=== PATIENT | female | born 1960 | race Caucasian/White ===

== ENCOUNTER 2023-08-20 14:52 | Outpatient (REF) | payer OTHER, SELFPAY ==
[2023-08-20 15:29] LABS: MANUAL DIFF FLAG NO
[2023-08-20 15:32] LABS: Basophils Absolute Auto 0.1 X10*3/uL (0.0-0.2); Basophils Percent Auto 0.9 % (0-2); Eosinophils Absolute Auto 0.2 X10*3/uL (0.0-0.4); Eosinophils Percent Auto 1.9 % (0-4); Hemoglobin 14.3 g/dl (12.0-16.0); Imm Gran Abs Auto 0.03 X10*3/uL (0.00-0.03); Imm Gran Pct Auto 0.3 % (0.0-0.4); Lymphocytes Absolute Auto 2.5 X10*3/uL (1.2-4.9); Lymphocytes Percent Auto 28.3 % (20-40); Mean Corpuscular HGB Conc 34.9 g/dl (31.0-35.0); Mean Corpuscular Hemoglobin 32.9 pg (27.0-33.0); Mean Corpuscular Volume 94.3 fL (80.0-98.0); Mean Platelet Volume 8.9 fL (9.4-12.3); Monocytes Absolute Auto 0.6 X10*3/uL (0.1-1.2); Monocytes Percent Auto 6.2 % (2-11); Neutrophils Absolute Auto 5.5 x10*3/uL (2.0-8.3); Neutrophils Percent Auto 62.4 % (45-73); Platelet Count 192 X10*3/uL (160-400); Red Blood Count 4.35 X10*6/uL (4.20-5.50); Red Cell Distribution Width 12.9 % (11.0-16.0); White Blood Count 8.9 X10*3/uL (4.8-10.8)
[2023-08-20 16:43] LABS: Ferritin 518 ng/mL (10-250)
== END 2023-08-20 14:53 | disposition home or self-care (01) ==
LOC: HO.BBR 14:52
PROVIDERS: PCP Registered Nurse; Visit Provider Family Medicine
DX: E83.110 Hereditary hemochromatosis (principal)
CPT/HCPCS: 36415; 82728; 85025

== ENCOUNTER 2023-08-27 14:49 | Outpatient (REF) | payer OTHER, SELFPAY ==
[2023-08-27 15:16] LABS: MANUAL DIFF FLAG NO
[2023-08-27 15:17] LABS: Basophils Absolute Auto 0.1 X10*3/uL (0.0-0.2); Basophils Percent Auto 0.8 % (0-2); Eosinophils Absolute Auto 0.2 X10*3/uL (0.0-0.4); Hematocrit 37.7 % (37.0-47.0); Hemoglobin 13.1 g/dl (12.0-16.0); Imm Gran Abs Auto 0.03 X10*3/uL (0.00-0.03); Imm Gran Pct Auto 0.3 % (0.0-0.4); Lymphocytes Absolute Auto 2.9 X10*3/uL (1.2-4.9); Lymphocytes Percent Auto 28.4 % (20-40); Mean Corpuscular HGB Conc 34.7 g/dl (31.0-35.0); Mean Corpuscular Hemoglobin 33.4 pg (27.0-33.0); Mean Corpuscular Volume 96.2 fL (80.0-98.0); Mean Platelet Volume 8.5 fL (9.4-12.3); Monocytes Absolute Auto 0.7 X10*3/uL (0.1-1.2); Monocytes Percent Auto 6.6 % (2-11); Neutrophils Absolute Auto 6.2 x10*3/uL (2.0-8.3); Neutrophils Percent Auto 61.9 % (45-73); Platelet Count 219 X10*3/uL (160-400); Red Blood Count 3.92 X10*6/uL (4.20-5.50); Red Cell Distribution Width 13.2 % (11.0-16.0); White Blood Count 10.1 X10*3/uL (4.8-10.8)
[2023-08-27 16:51] LABS: Ferritin 337 ng/mL (10-250)
== END 2023-08-27 14:50 | disposition home or self-care (01) ==
LOC: HO.BBR 14:49
PROVIDERS: PCP Registered Nurse; Visit Provider Family Medicine
DX: E83.110 Hereditary hemochromatosis (principal)
CPT/HCPCS: 36415; 82728; 85025

== ENCOUNTER 2023-09-10 14:58 | Outpatient (REF) | payer OTHER, SELFPAY ==
[2023-09-10 15:20] LABS: MANUAL DIFF FLAG NO
[2023-09-10 15:21] LABS: Basophils Absolute Auto 0.1 X10*3/uL (0.0-0.2); Eosinophils Absolute Auto 0.1 X10*3/uL (0.0-0.4); Eosinophils Percent Auto 1.4 % (0-4); Hemoglobin 13.1 g/dl (12.0-16.0); Imm Gran Abs Auto 0.05 X10*3/uL (0.00-0.03); Imm Gran Pct Auto 0.5 % (0.0-0.4); Lymphocytes Absolute Auto 2.3 X10*3/uL (1.2-4.9); Lymphocytes Percent Auto 25.3 % (20-40); Mean Corpuscular HGB Conc 34.5 g/dl (31.0-35.0); Mean Corpuscular Hemoglobin 33.6 pg (27.0-33.0); Mean Corpuscular Volume 97.4 fL (80.0-98.0); Mean Platelet Volume 8.5 fL (9.4-12.3); Monocytes Absolute Auto 0.6 X10*3/uL (0.1-1.2); Monocytes Percent Auto 6.8 % (2-11); Platelet Count 205 X10*3/uL (160-400); Red Cell Distribution Width 13.7 % (11.0-16.0); White Blood Count 9.2 X10*3/uL (4.8-10.8)
[2023-09-10 16:19] LABS: Ferritin 251 ng/mL (10-250)
== END 2023-09-10 14:59 | disposition home or self-care (01) ==
LOC: HO.BBR 14:58
PROVIDERS: PCP Registered Nurse; Visit Provider Family Medicine
DX: E83.110 Hereditary hemochromatosis (principal)
CPT/HCPCS: 36415; 82728; 85025

== ENCOUNTER 2023-09-17 15:00 | Outpatient (REF) | payer OTHER, SELFPAY ==
[2023-09-17 15:22] LABS: MANUAL DIFF FLAG NO
[2023-09-17 15:26] LABS: Basophils Absolute Auto 0.1 X10*3/uL (0.0-0.2); Basophils Percent Auto 1.3 % (0-2); Eosinophils Absolute Auto 0.2 X10*3/uL (0.0-0.4); Eosinophils Percent Auto 2.2 % (0-4); Hematocrit 37.8 % (37.0-47.0); Hemoglobin 12.8 g/dl (12.0-16.0); Imm Gran Abs Auto 0.03 X10*3/uL (0.00-0.03); Imm Gran Pct Auto 0.4 % (0.0-0.4); Lymphocytes Absolute Auto 2.9 X10*3/uL (1.2-4.9); Mean Corpuscular HGB Conc 33.9 g/dl (31.0-35.0); Mean Corpuscular Hemoglobin 33.4 pg (27.0-33.0); Mean Corpuscular Volume 98.7 fL (80.0-98.0); Mean Platelet Volume 8.6 fL (9.4-12.3); Monocytes Absolute Auto 0.6 X10*3/uL (0.1-1.2); Monocytes Percent Auto 6.8 % (2-11); Neutrophils Absolute Auto 4.5 x10*3/uL (2.0-8.3); Neutrophils Percent Auto 54.3 % (45-73); Platelet Count 200 X10*3/uL (160-400); Red Blood Count 3.83 X10*6/uL (4.20-5.50); Red Cell Distribution Width 13.6 % (11.0-16.0); White Blood Count 8.2 X10*3/uL (4.8-10.8)
[2023-09-17 16:13] LABS: Ferritin 208 ng/mL (10-250)
== END 2023-09-17 15:01 | disposition home or self-care (01) ==
LOC: HO.BBR 15:00
PROVIDERS: PCP Registered Nurse; Visit Provider Family Medicine
DX: E83.110 Hereditary hemochromatosis (principal)
CPT/HCPCS: 36415; 82728; 85025

== ENCOUNTER 2023-09-24 14:56 | Outpatient (REF) | payer OTHER, SELFPAY ==
[2023-09-24 15:15] LABS: MANUAL DIFF FLAG NO
[2023-09-24 15:18] LABS: Basophils Absolute Auto 0.1 X10*3/uL (0.0-0.2); Basophils Percent Auto 0.8 % (0-2); Eosinophils Absolute Auto 0.2 X10*3/uL (0.0-0.4); Eosinophils Percent Auto 2.5 % (0-4); Hematocrit 34.8 % (37.0-47.0); Imm Gran Abs Auto 0.02 X10*3/uL (0.00-0.03); Imm Gran Pct Auto 0.3 % (0.0-0.4); Lymphocytes Absolute Auto 2.9 X10*3/uL (1.2-4.9); Lymphocytes Percent Auto 36.4 % (20-40); Mean Corpuscular HGB Conc 34.5 g/dl (31.0-35.0); Mean Corpuscular Volume 98.6 fL (80.0-98.0); Mean Platelet Volume 8.6 fL (9.4-12.3); Monocytes Absolute Auto 0.5 X10*3/uL (0.1-1.2); Monocytes Percent Auto 5.9 % (2-11); Neutrophils Absolute Auto 4.3 x10*3/uL (2.0-8.3); Neutrophils Percent Auto 54.1 % (45-73); Platelet Count 237 X10*3/uL (160-400); Red Blood Count 3.53 X10*6/uL (4.20-5.50); Red Cell Distribution Width 13.7 % (11.0-16.0)
== END 2023-09-24 14:57 | disposition home or self-care (01) ==
LOC: HO.BBR 14:56
PROVIDERS: PCP Registered Nurse
DX: E83.110 Hereditary hemochromatosis (principal)
CPT/HCPCS: 36415; 85025

== ENCOUNTER 2023-10-15 14:34 | Outpatient (REF) | payer OTHER, SELFPAY ==
[2023-10-15 14:58] LABS: MANUAL DIFF FLAG NO
[2023-10-15 15:00] LABS: Basophils Absolute Auto 0.1 X10*3/uL (0.0-0.2); Basophils Percent Auto 0.8 % (0-2); Eosinophils Absolute Auto 0.2 X10*3/uL (0.0-0.4); Eosinophils Percent Auto 2.2 % (0-4); Hematocrit 40.7 % (37.0-47.0); Hemoglobin 14.1 g/dl (12.0-16.0); Imm Gran Abs Auto 0.02 X10*3/uL (0.00-0.03); Imm Gran Pct Auto 0.3 % (0.0-0.4); Lymphocytes Absolute Auto 2.3 X10*3/uL (1.2-4.9); Lymphocytes Percent Auto 31.3 % (20-40); Mean Corpuscular HGB Conc 34.6 g/dl (31.0-35.0); Mean Corpuscular Hemoglobin 33.9 pg (27.0-33.0); Mean Corpuscular Volume 97.8 fL (80.0-98.0); Mean Platelet Volume 8.9 fL (9.4-12.3); Monocytes Absolute Auto 0.5 X10*3/uL (0.1-1.2); Monocytes Percent Auto 7.1 % (2-11); Neutrophils Absolute Auto 4.3 x10*3/uL (2.0-8.3); Neutrophils Percent Auto 58.3 % (45-73); Platelet Count 186 X10*3/uL (160-400); Red Blood Count 4.16 X10*6/uL (4.20-5.50); Red Cell Distribution Width 12.5 % (11.0-16.0); White Blood Count 7.4 X10*3/uL (4.8-10.8)
[2023-10-15 15:59] LABS: Ferritin 92 ng/mL (10-250)
== END 2023-10-15 14:35 | disposition home or self-care (01) ==
LOC: HO.BBR 14:34
PROVIDERS: PCP Registered Nurse; Visit Provider Family Medicine
DX: E83.110 Hereditary hemochromatosis (principal)
CPT/HCPCS: 36415; 82728; 85025

== ENCOUNTER 2023-10-22 14:49 | Outpatient (REF) | payer OTHER, SELFPAY ==
[2023-10-22 15:07] LABS: MANUAL DIFF FLAG NO
[2023-10-22 15:09] LABS: Basophils Absolute Auto 0.1 X10*3/uL (0.0-0.2); Eosinophils Absolute Auto 0.2 X10*3/uL (0.0-0.4); Eosinophils Percent Auto 2.4 % (0-4); Hematocrit 36.9 % (37.0-47.0); Hemoglobin 12.7 g/dl (12.0-16.0); Imm Gran Abs Auto 0.03 X10*3/uL (0.00-0.03); Imm Gran Pct Auto 0.4 % (0.0-0.4); Lymphocytes Absolute Auto 2.3 X10*3/uL (1.2-4.9); Lymphocytes Percent Auto 30.4 % (20-40); Mean Corpuscular HGB Conc 34.4 g/dl (31.0-35.0); Mean Corpuscular Hemoglobin 33.8 pg (27.0-33.0); Mean Corpuscular Volume 98.1 fL (80.0-98.0); Mean Platelet Volume 8.9 fL (9.4-12.3); Monocytes Absolute Auto 0.6 X10*3/uL (0.1-1.2); Monocytes Percent Auto 7.2 % (2-11); Neutrophils Absolute Auto 4.5 x10*3/uL (2.0-8.3); Neutrophils Percent Auto 58.6 % (45-73); Platelet Count 196 X10*3/uL (160-400); Red Blood Count 3.76 X10*6/uL (4.20-5.50); Red Cell Distribution Width 12.5 % (11.0-16.0); White Blood Count 7.6 X10*3/uL (4.8-10.8)
== END 2023-10-22 14:50 | disposition home or self-care (01) ==
LOC: HO.BBR 14:49
PROVIDERS: PCP Registered Nurse; Visit Provider Family Medicine
DX: E83.110 Hereditary hemochromatosis (principal)
CPT/HCPCS: 36415; 85025

== ENCOUNTER 2023-11-26 14:58 | Outpatient (REF) | payer OTHER, SELFPAY ==
[2023-11-26 15:14] LABS: MANUAL DIFF FLAG NO
[2023-11-26 15:18] LABS: Basophils Absolute Auto 0.1 X10*3/uL (0.0-0.2); Eosinophils Absolute Auto 0.2 X10*3/uL (0.0-0.4); Eosinophils Percent Auto 2.3 % (0-4); Hematocrit 39.9 % (37.0-47.0); Hemoglobin 13.9 g/dl (12.0-16.0); Imm Gran Abs Auto 0.02 X10*3/uL (0.00-0.03); Imm Gran Pct Auto 0.2 % (0.0-0.4); Lymphocytes Absolute Auto 2.7 X10*3/uL (1.2-4.9); Lymphocytes Percent Auto 30.6 % (20-40); Mean Corpuscular HGB Conc 34.8 g/dl (31.0-35.0); Mean Corpuscular Hemoglobin 33.1 pg (27.0-33.0); Mean Platelet Volume 9.1 fL (9.4-12.3); Monocytes Absolute Auto 0.6 X10*3/uL (0.1-1.2); Neutrophils Absolute Auto 5.1 x10*3/uL (2.0-8.3); Neutrophils Percent Auto 58.9 % (45-73); Platelet Count 198 X10*3/uL (160-400); Red Cell Distribution Width 12.2 % (11.0-16.0); White Blood Count 8.7 X10*3/uL (4.8-10.8)
[2023-11-26 16:43] LABS: Ferritin 26 ng/mL (10-250)
== END 2023-11-26 14:59 | disposition home or self-care (01) ==
LOC: HO.BBR 14:58
PROVIDERS: PCP Registered Nurse; Visit Provider Nurse Practitioner Family
DX: E83.110 Hereditary hemochromatosis (principal)
CPT/HCPCS: 36415; 82728; 85025

== ENCOUNTER 2025-01-14 13:59 | Outpatient (REF) | payer BC, SELFPAY ==
--- OUTSIDE RECORDS SUMMARY | 2025-01-14 14:47 | XMS_ITS | Clinical Summary ---
Author Organization [facility] Address [address] [facility] [address] [place] [id number] Phone Care Team Providers Care Auto Body Mechanic Name Role Phone Jared Knott CNP Primary Care Provider [phone] Santana Woo MBBS Unavailable [phone] Allergies Active Allergy Reactions Criticality Noted Date Comments Penicillins Swelling 09/25/2017 Shellfish Containing Products 2017 Medications loratadine (CLARITIN) 10 mg tablet Take 10 mg by mouth daily. Active cholecalciferol (VITAMIN D3) 25 MCG (1,000 unit) tablet Take 1,000 Units by mouth daily. Active tirzepatide, weight loss, (ZEPBOUND) 10 mg/0.5 mL subcutaneous penIndications:C lass 1 obesity with serious comorbidity and body mass index (BMI) of 32.0 to 32.9 in adult, unspecified obesity type Inject 0.5 mL (10 mg total) under the skin every 7 days. 2 mL 12/20/19 25 Active tirzepatide (MOUNJARO) 10 mg/0.5 mL PnIj subcutaneous penIndications:C lass 1 obesity with serious comorbidity and body mass index (BMI) of 32.0 to 32.9 in adult, unspecified obesity type Inject 0.5 mL (10 mg total) under the skin every 7 days. 2 mL 12/24/19 25 Active ondansetron (ZOFRAN) 4 MG tabletIndication s:Malaise and fatigue,Nausea Take 1 tablet (4 mg total) by mouth every 12 (twelve) hours as needed for nausea. 30 tablet 12/25/19 25 Active sertraline (ZOLOFT) 50 MG tabletIndication s:Generalized anxiety disorder TAKE (1) TABLET DAILY. 30 tablet 01/10/20 25 Active ondansetron (ZOFRAN) 4 MG tabletIndication s:Nausea Take 1 tablet (4 mg total) by mouth every 12 (twelve) hours as needed for nausea. 30 tablet 05/13/20 24 025 Discontinued(Re order) losartan (COZAAR) 25 MG tabletIndication s:Essential hypertension Take 0.5 tablets (12.5 mg total) by mouth daily. 12/09/19 25 025 Discontinued(No longer taking) sertraline (ZOLOFT) 50 MG tabletIndication s:Generalized anxiety disorder TAKE (1) TABLET DAILY. 30 tablet 12/11/19 25 025 Discontinued tirzepatide, weight loss, (ZEPBOUND) 12.5 mg/0.5 mL subcutaneous penIndications:C lass 1 obesity with serious comorbidity and body mass index (BMI) of 32.0 to 32.9 in adult, unspecified obesity type Inject 0.5 mL (12.5 mg total) under the skin every 7 days. 2 mL 12/11/19 25 025 Discontinued Active Problems Patient Care Coordination No te Formatting of this note migh t be different from the original. HEIGHT 172.2 cm taken by RB on 07/10/2023 Problem Noted Date Diagnosed Date Nausea 12/25/2024 Assessment & Plan (12/25/2024 7:04 AM EDT): Has been slowly improving. No associated GI symptoms/fevers. Labs done at [facility] normal. Is taking a two week break from Zepbound and when restarts will be at a lower dose. Rx refill sent for Zofran to use as needed. Ensure hydration/protein intake. Aware to follow-up if no improvement and/or worsening symptoms Low platelet count 12/25/2024 Assessment & Plan (12/25/2024 7:02 AM EDT): Mild on labs done at [facility] ED. No abnormal bleeding, hx of hemachromatosis. Will repeat CBC and follow-up with results Malaise and fatigue 12/17/2024 Assessment & Plan (12/25/2024 7:04 AM EDT): Labs/imaging done at [facility] normal. Is feeling better each day. Focusing on hydrating/increasing activity as tolerated. Aware to follow-up if no improvement and/or worsening symptoms Assessment & Plan (12/17/2024 10:29 AM EDT): Significant sleeping for 14 + hours a day. EKG completed today- normal sinus rhythm. Initially going to consider outpatient work-up with labs/imaging, patient then started to dry heave during visit and reports not feeling well . Advised benefit of ER evaluation and patient agrees. Declines ambulance ride, advised would not recommend to drive. 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 Provided water/cold back to back of neck while waiting. Will follow-up with patient once discharged Dizziness and giddiness 11/28/2024 Assessment & Plan (12/17/2024 10:29 AM EDT): *see plan per fatigue. Did improve slightly with stopping Losartan Assessment & Plan (11/28/2024 12:25 PM EDT): X past few weeks and more persistent. No associated symptoms. Labs done 10/2024- dehydration. Highly encourage adequate oral intake with 64 oz daily. Can add an electrolyte packet daily. Due to low BP readings, will have patient stop Losartan and monitor BP closely at home. Plan for recheck in one week. Follow-up sooner if BP readings are consistently above goal and/or any new/worsening symptoms Preop examination 06/04/2024 Assessment & Plan (06/04/2024 4:38 PM EST): Based on this exam, patient is average risk for this average risk surgical procedure. No apparent contraindications. No labs needed. EKG completed- normal sinus rhythm. According to AHA/ACC cardiovascular risk, no further cardiac testing for surgical clearance. Can continue all medications as prescribed. Avoid NSAIDs 7-10 days prior. Believe Zebound is only stopped with general anesthesia but will confirm with weight management and notify patient. Screening for cervical cancer 05/08/2024 Assessment & Plan (05/08/2024 5:24 PM EST): Pap smear obtained today, will follow-up with results. If negative/HPV negative, likely no further screening needed only as needed Vitamin D deficiency 05/08/2024 Assessment & Plan (05/08/2024 5:25 PM EST): On recent labs, encourage to start Vitamin D 1,000 units daily Right arm pain 11/05/2023 Assessment & Plan (11/05/2023 8:32 AM EDT): Unclear etiology, feels more ache. ? Tendonitis. Reports mother had kidney cancer that metastasized to arm therefore makes patient nervous. No overt abnormalities on exam. Will check x-ray of right arm/shoulder to ensure normal. Phone # provided for patient. Will follow-up with results. Encourage use of a compression brace to right elbow, reports has done in the past with some improvement, encourage to try continuously for 1-2 weeks. Also discussed option of PT, referral entered. Aware to follow-up if no improvement and/or worsening symptoms Right leg pain 11/05/2023 Assessment & Plan (11/05/2023 8:32 AM EDT): ? Radiating from back. No overt abnormalities on exam. Continue with regular stretching. Will check x-ray of leg to ensure normal. Also discussed PT, referral entered and phone # provided. Aware to follow-up if no improvement and/or worsening symptoms Hereditary hemochromatosis 10/24/2023 Assessment & Plan (12/25/2024 7:03 AM EDT): Requesting to repeat CBC and ferritin, orders entered today. Is doing phlebotomy through [facility] Assessment & Plan (12/10/2024 10:42 PM EDT): IMPRESSION: Bethany River is a 63 y.o. 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 DISCUSSION: I discussed overall impression, natural history of the disease and further management in this regard. Patient has been tolerating current therapy without any issues. She has been responding to current therapy well and I reassured her about this. Target ferritin is less than 100. RECOMMENDATIONS: Resume therapeutic phlebotomy with frequency of every 3 months Patient undergoes therapeutic phlebotomy at [facility] We will fax the order and labs to [facility] Target ferritin is less than 100 Return for follow-up in 1 year Thank you very much for allowing to participate in this patient's care Assessment & Plan (05/08/2024 5:24 PM EST): Stable, following with Dr. Woo Assessment & Plan (10/24/2023 8:54 AM EDT): IMPRESSION: Bethany River is a 63 y.o. 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 DISCUSSION: I discussed overall impression, natural history of the disease and further management in this regard. Patient has been tolerating current therapy without any issues. She has been responding to current therapy well and I reassured her about this. Target ferritin is less than 100. RECOMMENDATIONS: Change therapeutic phlebotomy frequency to monthly Target ferritin is less than 100 Return for follow-up in 6 months Thank you very much for allowing to participate in this patient's care Right leg swelling 08/15/2023 Assessment & Plan (08/16/2023 12:47 PM EST): Concern for DVT due to recent travel and right leg with mild swelling/pain. Has not improved since the beginning of this month with OTC remedies. Will check stat US of RLE (scheduled appointment at [facility] at 12:45 pm) and follow-up with results. Will determine next steps based on results. Expresses understanding and agreeable for plan Screening for hyperlipidemia 05/07/2023 Assessment & Plan (05/08/2024 5:24 PM EST): Last done 04/2023, ordered today and will follow-up with results. Working on healthy diet/regular exercise Assessment & Plan (05/07/2023 8:43 AM EST): Last fasting labs done 2017. Ordered today and will follow-up with results. Encourage healthy diet/regular exercise Encounter for screening mamm ogram for malignant neoplasm of breast 05/07/2023 Assessment & Plan (05/08/2024 5:24 PM EST): Last done 04/2023. Family history of breast CA in sister, will continue with annual screening. Orders entered and phone # provided for patient. CBE completed today and normal Assessment & Plan (05/07/2023 8:42 AM EST): Last mammogram 03/2022- normal. Initially thought of screening every 2 years but reports that her sister was recently diagnosed with breast CA (early stages and negative gene testing). Would encourage to continue with annual screening for now and patient is agreeable. Prefers to go through [facility], will fax mammogram order and follow-up with results once received Fear of flying 05/07/2023 Assessment & Plan (05/08/2024 5:22 PM EST): Has Ativan to use as needed, rx sent Assessment & Plan (05/07/2023 8:40 AM EST): Has Ativan to use as needed, requesting refill. PDMP verified, prescription sent Annual physical exam 05/07/2023 Assessment & Plan (05/08/2024 5:23 PM EST): UTD with optho/dentist. Preventive care reviewed. Fasting labs ordered today. Does see dermatology- will arrange routine skin check. Working on healthy diet/regular exercise. Has visit scheduled 05/2024, will plan for six month follow-up for HTN Assessment & Plan (05/07/2023 8:41 AM EST): UTD with optho/dentist. Immunizations reviewed. Cologuard/pap smear utd. Mammogram ordered today. Fasting labs ordered. Sees dermatology as needed. Encourage healthy diet/regular exercise Essential hypertension 08/11/2022 Assessment & Plan (12/25/2024 7:02 AM EDT): BP at goal off Losartan, advised to stay off medication for now and continue to monitor BP. DASH diet/exercise. Send update with BP readings in next few weeks or if feels BP has started to increase. Will bring cuff/medication on trip to [place] in case BP becomes elevated Assessment & Plan (12/17/2024 10:30 AM EDT): *see plan per fatigue/dizziness. BP at goal off Losartan, will keep patient off medication Assessment & Plan (12/08/2024 10:55 AM EDT): Symptoms have resolved with stopping Losartan but diastolic BP readings above goal and home readings fluctuating. Will have patient restart Losartan at 12.5 mg daily (1/2 tablet). Continue to monitor BP closely. Goal of diastolic in the 70's. DASH diet/regular exercise. Send update via portal and follow-up as needed, expresses understanding and agreeable for plan Assessment & Plan (11/28/2024 12:25 PM EDT): *see plan per dizziness. BP running on low side and with losing weight may be cause of dizziness. Will have patient stop medication and monitor BP. Close follow-up in one week, ensure hydration. Assessment & Plan (05/08/2024 5:22 PM EST): BP very well controlled. Has been actively working on weight loss/diet. Has had a few brief episodes of lightheadedness but not severe. Has a BP cuff at home, encourage to monitor BP twice a week. Has visit scheduled 06/04/24, will bring readings to that visit. If BP remains on the lower side can consider adjusting medication. Labs done 03/2024 Assessment & Plan (11/05/2023 8:30 AM EDT): BP at goal, continue medications as prescribed. Encourage to work on regular exercise 3-4 x a week for 30 minutes, continue with DASH diet. CMP done 07/2023. Plan for CPE in six months, aware to follow-up sooner if needed Assessment & Plan (05/07/2023 8:39 AM EST): BP at goal, continue medications as prescribed. Labs ordered today. Eats healthy/DASH diet. Encourage to add 30-40 minutes of aerobic exercise 3-4 x a week, plan for six month follow-up Assessment & Plan (04/16/2023 3:11 PM EDT): BP at goal, requesting refill of medication. RX sent. Has CPE 04/2023 Assessment & Plan (10/30/2022 8:31 AM EDT): BP at goal. Home cuff readings 118/79. Continue medications as prescribed. Labs done 07/2022 prior to starting medication, will repeat BMP today to ensure normal. Following DASH diet, encourage regular aerobic exercise. Has CPE scheduled 04/2023, aware to follow-up sooner if needed Assessment & Plan (09/08/2022 9:33 AM EDT): Two BP readings in office at goal today. Has been taking at home but immediately after taking medication, advised would be best to check BP 1-2 hours after medication, even if can only do 2-3 x a week. Is working on diet/exercise, has follow-up visit 10/2022, aware to follow-up sooner if needed Assessment & Plan (08/11/2022 11:06 AM EST): BP consistently above goal of <140/90. Discussed option of medication management, agreeable. Will start Losartan 25 mg daily. Reviewed side effects/risks/benefits. No recent lab work, will check BMP prior to starting. Is leaving for a cruise tomorrow for one week, will wait to start medication until she returns due to chance of experiencing side effects/advserse effects and being on a cruise ship. Emphasize benefit of DASH diet/regular aerobic exercise. Encourage to continue monitoring blood pressure at home and follow-up if readings remain above goal of <140/90 as medication may need adjustment, expresses understanding Back pain, lumbosacral 07/31/2022 Assessment & Plan (05/07/2023 8:41 AM EST): Intermittent, no red flag symptoms. Started following with a chiropractor every 3 weeks and will move to every 4 Assessment & Plan (07/31/2022 2:59 PM EST): Improving, plan for outpatient PT 08/09/22. Encourage Ibuprofen as needed, light stretching, moist heat. Can use Flexeril as needed, refill sent, advised no driving/ETOH use while taking and avoid use with Ativan. Aware to follow-up if no improvement and/or worsening symptoms develop, expresses understanding Class 1 obesity with serious comorbidity and body mass index (BMI) of 32.0 to 32.9 in adult 05/05/2022 Overview (12/10/2024): WHO Class 1 AACE stage 0 AOM hx: Tirzepatide (compounded), Wegovy (multiple side effects), Zepbound Assessment & Plan (12/10/2024 9:01 AM EDT): Bethany has done much better on Zepbound than Wegovy so we would strongly prefer to continue her treatment. She is doing a good job getting adequate protein and vegetables in her diet. She remains very motivated. She is exercising regularly with walking and I asked her to add back strength training. She has been getting little local reactions to the injections. We talked about rotating the site and she can also use topical Benadryl cream if needed. She will follow-up with me in 3 months. Assessment & Plan (08/26/2024 3:53 PM EST): She resumed Zepbound on July 18 and has titrated up to 5 mg. She is having some heartburn. I am going to start her on regular Pepcid 20 to 40 mg daily. I want her to consistently have breakfast that she is sometimes skipping. goal for exercise 3 days/week. She will message me in 2 weeks give me an update on her weight and on the side effects and we will decide if we are going to titrate up to 7.5 mg. Follow- up in office 3 months. Assessment & Plan (05/13/2024 4:12 PM EST): She is not tolerating Wegovy well, has developed nausea and vomiting. She tolerated compounded tirzepatide better. Her insurance company denied our prior authorization for Zepbound because apparently they did not receive her records with her BMI even though we did send her visit note. We will submit another prior authorization for Zepbound. In the meantime she will continue the 1 mg of Wegovy. She will start taking famotidine 20 mg twice daily. She will use Zofran as needed. We plan a follow-up in 8 to 12 weeks but we will communicate over messaging sooner. Assessment & Plan (03/25/2024 4:14 PM EDT): Pt was educated on the pathophysiology of obesity, which is a chronic, relapsing, often progressive neuroendocrine disease with behavioral components. We discussed treatment approaches including lifestyle changes, pharmacotherapy & bariatric surgery. We discussed their personal treatment goals. We discussed targeting a weight loss goal of 5-10% over the next 6 months as this modest amount of weight loss has been shown to decrease blood pressure, insulin resistance, sleep apnea, liver inflammation, arthritic pain and improve dyslipidemia. I recommend the following labs as part of their initial evaluation, the results of which will direct further treatment recommendations: CMP, A1c, Vit D, b12 Patient was given the initial meal plan and exercise recommendations. I recommend patient work with our dietitian, Cece Gu RD and have asked them to schedule an appt. We reviewed possible risks of compounded GLP1RA. I recommend she continue therapy with Zepbound. She will start at 5 mg since this is her 2nd month The patient has completed > 3 months of efforts focused on dietary and lifestyle changes and added compounded tirzepatide 1 month ago has been unsuccessful in reaching their weight loss goals. I have explained that this medication decreases appetite & food cravings and increases feeling of fullness. I have reviewed the following possible side effects: Nausea, vomiting, constipation, gastroparesis, SBO, pancreatitis, gallstones, suicidal thoughts, diabetic retinopathy, optic neuropathy, low blood sugar and in rat studies an increased risk of medullary thyroid cancer and MEN2. This medication is not recommended in and in patients with a personal or family history of medullary thyroid cancer or multiple endocrine neoplasia 2A or 2B. We also discussed health insurance inflicted barriers to obtaining GLP1RA and possible need for prior authorization & appeal Assessment & Plan (05/07/2023 8:40 AM EST): Diet is healthy, admits to only eating one meal a day which advised can actually be worse for her/not help with losing weight. Encourage to try intermittent fasting which she has done in the past and did feel improvement. Encourage aerobic exercise 3-4 x a week Assessment & Plan (05/05/2022 9:30 AM EST): Emphasize benefit of regular aerobic exercise 4-5x a week for 30-40 minutes and healthy diet Generalized anxiety disorder 05/03/2022 Assessment & Plan (05/08/2024 5:22 PM EST): Feels well managed on current regimen, continue as prescribed Assessment & Plan (05/07/2023 8:40 AM EST): On Zoloft, no SI/HI. Feels well controlled on current regimen. Feels it helps her not sweat the small stuff and is ok with staying on current dose Assessment & Plan (05/05/2022 9:22 AM EST): Well-controlled on current medication, continue as prescribed Resolved Problems Problem Noted Date Diagnosed Date Resolved Date Pre-operative cardiovascular examination 06/04/2024 06/04/2024 Acute non-recurrent maxillary sinusitis 07/18/2023 12/25/2024 Assessment & Plan (10/09/2024 1:48 PM EDT): Symptoms present x 2 weeks. Will treat with course of Z-luis felipe, as will be out in the sun and avoid Doxy. Encourage to take with food to avoid GI upset. Encourage oral hydration/rest, humidification. Use OTC Mucinex. Aware to follow-up if no improvement and/or worsening symptoms Assessment & Plan (07/18/2023 3:48 PM EST): Symptoms present x 3 weeks with no improvement, will treat for bacterial sinus infection. Reviewed side effects/risks/benefits, has done Z-luis felipe in the past with improvement and tolerated well. Encourage oral hydration, nasal saline/steam/humidification. Should feel improvement in 48-72 hours, aware to follow-up if no improvement and/or worsening symptoms, expresses understanding Sinus pressure 04/16/2023 05/07/2023 Assessment & Plan (04/16/2023 3:13 PM EDT): No obvious signs of infection on ear exam. No mastoid tenderness/fevers. Does have sinus pressure/fullness on left side x 2 weeks and recent tooth extraction. No obvious swelling/erythema. Encourage use of Flonase daily, continue with Claritin, can use Ibuprofen/Tylenol as needed. Does have history of sinus infections and feels left side feels slightly similar, can do course of Z-luis felipe but not 100% sure it will help with ear pain. Reviewed side effects/risks/benefits, advised to take with food to avoid GI upset. Aware to follow-up if no improvement and/or worsening symptoms Elevated blood-pressure read ing, without diagnosis of hypertension 07/31/2022 08/11/2022 Assessment & Plan (07/31/2022 2:58 PM EST): BP today, systolic at goal, diastolic at/above goal. Discussed option of medication vs. Lifestyle modification/monitoring. Admits to using a lot of salt. Will follow DASH diet, limit ETOH use, regular aerobic exercise when back pain improves. Encourage to monitor blood pressure 1-2 weekly at home with plan to follow-up in 2-3 months. Aware to follow-up sooner if readings are consistently above goal of <140/90, expresses understanding Viral URI with cough 06/05/2022 023 Assessment & Plan (06/05/2022 10:32 AM EST): Advised likely viral and encourage supportive care. Ensure adequate oral hydration, rest, can use Ibuprofen/Tylenol as needed, Delsym OTC for cough, nasal saline for congestion. If no improvement by the end of the week advised to follow-up- may need antibiotic at that time, follow-up sooner for any worsening symptoms, expresses understanding Achilles tendon pain 05/05/2022 023 Assessment & Plan (05/05/2022 9:37 AM EST): Ongoing x one year, better throughout the day, question of tendonitis. Exercises provided to patient via portal, wear supportive shoes. If no improvement with home exercises, advised to follow-up and can refer to PT, expresses understanding Colon cancer screening 05/05/202205/07 Assessment & Plan (05/05/2022 9:21 AM EST): Last colonoscopy 2010- normal, due 2020. Declines colonoscopy but is agreeable to cologuard, reviewed risks/benefits Encounter to establish care 05/05/2022 05/07/2023 Assessment & Plan (05/05/2022 10:16 AM EST): Reviewed past medical history. UTD with optho/dentist. Due for colonoscopy- agreeable for cologuard. Pap due- requesting to complete at [facility] next year. Mammo utd, not yet due for DEXA. Fasting labs 2018- LDL at goal, requesting to complete next year. Declines flu/shingles/covid booster, utd with tdap. Encourage regular use of sunscreen. Plan for [facility] one year w/pap, aware to follow-up sooner if needed Overweight 05/03/2022 05/07/2023 Family history of hemochromatosis 05/03/2022 05/08/2024 Assessment & Plan (05/07/2023 8:42 AM EST): 3/5 siblings. Interested in checking iron/labs to ensure normal Assessment & Plan (05/05/2022 10:17 AM EST): Requesting to complete blood work with [facility] in one year, 3/5 siblings with hemochromatosis Encounters Date Type Department Care Team Description 01/13/2025 Telephone [facility] Medicine [address] [place] [id number] Marisol Larry LPN 01/09/[address] [address] Jared Knott CNP Medication Refill 12/25/2024 9:21 AM EDT - 12/25/2024 11:59 PM EDT Hospital Encounter [facility] [address] [place] [id number] Jared Knott CNP Discharge Disposition: Home or Self Care 12/25/2024 Telephone [facility] at [address] [id number] Angelica Feliciano RN phlebotomy orders 12/24/2024 4:00 PM EDT Office Visit [address] [address] Jared Knott CNP Malaise and fatigue (Primary Dx); Nausea; Essential hypertension; Low platelet count; Hereditary hemochromatosis 12/23/2024 Telephone [facility] [address] [place] [address] Molly Martin, TIERA Zepbound denial 12/18/[address] [address] Jared Knott CNP Call 12/17/2024 10:52 AM EDT - 12/17/2024 6:20 PM EDT Emergency [facility] [address] [place] [address] Discharge Disposition: Home or Self Care 12/17/2024 9:30 AM EDT Office Visit [address] [address] Jared Knott CNP Fatigue, unspecified type (Primary Dx); Essential hypertension; Dizziness and giddiness 12/17/2024 Procedure Pass [facility], Ct Scan - [address] [address] 12/10/2024 4:00 PM EDT Telemedicine - audio only [facility] Center at [address] [address] Santana Woo MBBS Hereditary hemochromatosis (Primary Dx) 12/10/2024 8:45 AM EDT Office Visit [facility] [address] [place] [address] Molly Martin, TIERA Class 1 obesity with serious comorbidity and body mass index (BMI) of 32.0 to 32.9 in adult, unspecified obesity type 12/09/[address] [address] Jared Knott CNP Medication Refill 12/08/2024 10:30 AM EDT Office Visit [address] [address] Jared Knott CNP Essential hypertension (Primary Dx) 12/02/2024 3:37 PM EDT - 12/02/2024 11:59 PM EDT Hospital Encounter [facility] [address] [place] [phone] Santana Woo, Adele Hernandez CNP Discharge Disposition: Home or Self Care 11/28/2024 11:45 AM EDT Office Visit [address] [address] Jared Knott CNP Dizziness (Primary Dx); Essential hypertension 11/19/2024 Orders Only [facility] at [address] [address] Adele Smith CNP Hereditary hemochromatosis (Primary Dx) 11/19/2024 Telephone [facility] at [address] [address] Santana Woo MBBS Appointment 11/12/2024 4:07 PM EDT - 11/12/2024 11:59 PM EDT Hospital Encounter [facility] [address] [place] [address] Santana Woo MBBS [place], Sofia Inez, TIERA Discharge Disposition: Home or Self Care 10/27/2024 Refill [facility] [address] [place] [address] Molly Martin CNP Medication Refill from Last 3 Months Immunizations Immunization Administration Dates Next Due COVID-19 (Pre-04/16) Sarah Vaccine, [id number], P F 09/11/2020 Influenza Quadrivalent MDCK Preservative Free IM 04/19/2019,05/01/2018 Influenza Quadrivalent MDCK w/Preservative IM Influenza Trivalent w/ Preservative IM 6 Tdap 01/03/2021,03/14/2011 Family History Relation Status Comments Daughter Social History Tobacco Use Types Packs/Day Years Used Date Smoking Tobacco: Never Smokeless Tobacco: Never Tobacco Cessation:Counseling Given: Not Answered Alcohol Use Standard Drinks/Week Comments Yes 1 (1 standard drink = 0.6 oz pur e alcohol) Child or Family Care Answer Date Record ed Do you have problems with on e of the following making it difficult for you to work, study, or receive health care? No 05/07/2024 Education Answer Date Recorded Are you interested in help w ith more adult education (for example, completing high school, GED, job training, learning the Estonian language, technical skills, or developing parenting skills)? No 05/07/2024 Are you concerned about learning? Not on file 05/07/2024 No 05/07/2024 Yes 05/07/2024 Food Answer Date Recorded Within the past 6 months we worried whether our food would run out before we got money to buy more. I choose not to answer 12/17/2024 Within the past 6 months the food we bought just didn't last and we didn't have enough money to get more. I choose not to answer 12/17/2024 Residential Stability Answer Date Recor ded What is your housing situation today? I choose n ot to answer 12/17/2024 How many times have you move d in the past 12 months? I choose not to answer 12/17/2024 Paying for Meds Answer Date Recorded Do you have trouble paying for medicines? I gray se not to answer 12/17/2024 Paying Utility Bills Answer Date Record ed Do you have trouble paying y our heating or electricity bill? I choose not to answer 12/17/2024 Transportation Answer Date Recorded Has the lack of transportati on kept you from medical appointments or from getting medications? I choose not to answer 12/17/2024 Digital Access Answer Date Recorded No 12/17/2024 No 12/17/2024 Do you have reliable internet access at home? I choose not to answer 12/17/2024 Do you have a device (e.g., phone, tablet, computer) with a working camera? I choose not to answer 12/17/2024 Intimate Partner Violence Answer Date R ecorded Are you denied basic needs s uch as food, clothing, or medical care? No 12/17/2024 In the past 12 months have y ou been in a relationship with a person who hurts, threatens, or tries to control you? No 12/17/2024 Are you denied basic needs s uch as food, clothing, or medical care? No 12/17/2024 In the past 12 months have y ou been in a relationship with a person who hurts, threatens, or tries to control you? No 12/17/2024 Comments Unknown Sex and Gender Information Value Date Recorded Sex Assigned at Not on file Legal Sex Female 3:26 PM EDT Gender Identity Not on file Sexual Orientation Not on file Last Filed Vital Signs Vital Sign Reading Time Taken Comments Blood Pressure 112/62 12/24/2024 3:57 PM EDT Pulse 76 12/24/2024 3:57 PM EDT Temperature 36.4 C (97.6 F) 12/24/2024 3:57 PM EDT Respiratory Rate 20 12/24/2024 3:57 PM EDT Oxygen Saturation 98% 12/24/2024 3:57 PM EDT Inhaled Oxygen Concentration - - Weight 92.5 kg (204 lb) 12/24/2024 3:57 PM EDT Height 172.7 cm (5' 8 ) 12/17/2024 10:39 AM EDT Body Mass Index 31.02 12/17/2024 10:39 AM EDT Plan of Treatment Upcoming Encounters Date Type Department Care Team (Late st Contact Info) Description 03/18/2025 3:30 PM EDT Office Visit [facility] [address] [place] [address] Molly Martin, [employer] MANAGER [address] [facility], 2nd [place] [address] [email or web address] Health Maintenance Due Date Last Done Comments COLONOSCOPY 2006 FIT TEST 2006 FOBT 2006 SIGMOIDOSCOPY 2006 VIRTUAL COLONOSCOPY 2006 PNEUMOCOCCAL VACCINES (50+ years) (1 of 1 - PCV) 2011 ZOSTER VACCINES (1 of 2) 2011 COVID-19 VACCINE (2 - season) 2024 09/11/2020 DEPRESSION SCREENING 05/07/2025 05/07/2024 MAMMOGRAM 05/14/2025 05/14/2023, 04/25, 03/27/2022, Additional history exists COLOGUARD 05/23/2025 05/23/2022 COLORECTAL CANCER SCREENING 05/23/2025 BLOOD PRESSURE 06/26/2025 12/24/2024 SCREENING FOR DIABETES 12/18/2027 12/17/2024, 2023 PAP SMEAR 05/08/2029 05/08/2024, 07/08/2018 LIPID PANEL 06/24/2029 06/24/2024, 04/25, 03/04/2018, Additional history exists Adult Td,Tdap Booster 01/03/2031 01/03/2021, 011 RSV VACCINE (1 - 1-dose 75+ series) 2036 HEPATITIS C SCREENING Completed 05/08/2023 HIV ONE-TIME SCREENING (18-65 YEARS) Completed 05/08/2023 SMOKING STATUS SCREENING (Once After 26 Yrs) Completed 12/10/2024 HEPATITIS A VACCINES Aged Out No long er eligible based on patient's age to complete this topic HIB VACCINES Aged Out No longer eligi ble based on patient's age to complete this topic MENINGOCOCCAL VACCINES (ACWY) Aged Out No longer eligible based on patient's age to complete this topic MENINGOCOCCAL VACCINES (B) Aged Out N o longer eligible based on patient's age to complete this topic Medical Devices Not on file Procedures Procedure Name Priority Date/Time Associated Diagnosis Comments VITAMIN B12 Routine 12/25/2024 10:00 AM EDT Malaise and fatigue CBC AND DIFFERENTIAL Routine 12/25/2024 10:00 AM EDT Low platelet count Hereditary hemochromatosis FERRITIN Routine 12/25/2024 10:00 AM EDT Low platelet count Hereditary hemochromatosis TROPONIN STAT 12/17/2024 5:33 PM EDT ECG 12-LEAD STAT 12/17/2024 5:[address] HEAD WITHOUT CONTRAST Routine 12/17/2024 3:29 PM EDT TSH WITH REFLEX STAT 12/17/2024 2:58 PM EDT BABESIA SEROLOGY STAT 12/17/2024 2:58 PM EDT LYME SCREEN WITH REFLEX TO WESTERN BLOT, BLOOD STAT 12/17/2024 2:58 PM EDT BABESIA SPECIES PCR STAT 12/17/2024 2 :58 PM EDT MALARIA/BABESIA EXAM STAT 12/17/2024 2:58 PM EDT Ehrlichia/anaplasma PCR STAT 12/17/2024 2:58 PM EDT URINE SEDIMENT STAT 12/17/2024 12:38 PM EDT URINALYSIS W/REFLEX URINE CULTURE STAT 12/17/2024 12:38 PM EDT LFTS (HEPATIC PANEL) STAT 12/17/2024 10:59 AM EDT BASIC METABOLIC PANEL STAT 12/17/2024 10:59 AM EDT CBC AND DIFFERENTIAL STAT 12/17/2024 10:59 AM EDT ECG 12-LEAD Routine 12/17/2024 9:53 AM EDT Essential hypertension Fatigue, unspecified type Dizziness and giddiness CBC AND DIFFERENTIAL Routine 12/02/2024 3:37 PM EDT Hereditary hemochromatosis FERRITIN Routine 12/02/2024 3:37 PM EDT Hereditary hemochromatosis 25-OH VITAMIN D Routine 11/12/2024 4:17 PM EDT Class 1 obesity with serious comorbidity and body mass index (BMI) of 32.0 to 32.9 in adult, unspecified obesity type COMPREHENSIVE METABOLIC PANEL Routine 11/12/2024 4:17 PM EDT Class 1 obesity with serious comorbidity and body mass index (BMI) of 32.0 to 32.9 in adult, unspecified obesity type TSH WITH REFLEX Routine 11/12/2024 4:17 PM EDT Class 1 obesity with serious comorbidity and body mass index (BMI) of 32.0 to 32.9 in adult, unspecified obesity type LIPID PANEL Routine 06/24/2024 8:35 AM EST Screening for hyperlipidemia PAP TEST Routine 05/08/2024 12:00 AM EST HM MAMMOGRAPHY Routine 05/14/2023 HEPATITIS C ANTIBODY, QUALITATIVE Routine 05/08/2023 8:15 AM EST Need for hepatitis C screening test from Last 3 Months or Most Recently Relevant to Health Maintenance Results * (ABNORMAL) CBC and differential (12/25/2024 10:00 AM EDT) Only the most recent of3 resultswithin the time period is included. WBC 6.17 4.00 - 11.00 K/uL [facility] RBC 4.31 4.00 - 5.20 M/uL [facility] HGB 14.0 12.0 - 16.0 g/dL [facility] HCT 40.8 36.0 - 46.0 % [facility] PLT 245 150 - 450 K/uL [facility] MCV 94.7 80.0 - 100.0 fL [facility] MCH 32.5(H) 27.0 - 31.0 pg [facility] MCHC 34.3 32.0 - 36.0 g/dL [facility] RDW 12.3 11.5 - 14.5 % [facility] MPV 8.7 8.4 - 12.0 fL [facility] NRBC 0.00 0.00 /100 WBCs [facility] ABSOLUTE NRBC 0.00 0.00 K/uL [facility] DIFF METHOD Auto [facility] NEUTS 66.0 48.0 - 76.0 % [facility] LYMPHS 23.0 18.0 - 41.0 % [facility] MONOS 6.3 4.0 - 11.0 % [facility] EOS 2.3 0.0 - 5.0 % [facility] BASOS 1.3 0.0 - 1.5 % [facility] Granulocytes, immature (%) 1.1(H) 0.0 - 0.9 % [facility] ABSOLUTE NEUTS 4.07 1.92 - 7.60 K/uL [facility] ABSOLUTE LYMPHS 1.42 0.72 - 4.10 K/uL [facility] ABSOLUTE MONOS 0.39 0.16 - 1.10 K/uL [facility] ABSOLUTE EOS 0.14 0.00 - 0.50 K/uL [facility] ABSOLUTE BASOS 0.08 0.00 - 0.15 K/uL [facility] Granulocytes, immature 0.07 0.00 - 0.09 K/uL [facility] Blood 12/25/2024 10:0 0 AM EDT 12/25/2024 10:04 AM EDT us Jared Knott [employer] MANAGER LAB BLOOD ORDERABLES Final Result [facility] [address] [place] [address] * (ABNORMAL) Ferritin (12/25/2024 10:00 AM EDT) Only the most recent of2 resultswithin the time period is included. FERRITIN 458(H) 13 - 150 ug/L [facility] Blood 12/25/2024 10:0 0 AM EDT 12/25/2024 10:04 AM EDT Jared Knott [employer] MANAGER LAB BLOOD ORDERABLES Final Result [address] [address] * Vitamin B12 (12/25/2024 10:00 AM EDT) Pathologist [facility] [place] VITAMIN B12 476 232 - 1,245 pg/mL [facility] Blood 12/25/2024 10:0 0 AM EDT 12/25/2024 10:04 AM EDT us Jared Knott [facility] LAB BLOOD ORDERABLES Final Result Performing Organization Address City/[facility]/ZIP Co de Phone Number [address] [address] * Troponin (12/17/2024 5:33 PM EDT) Pathologist [facility] [place] Troponin-T, HS Gen5 <6 0 - 9 ng/L [facility] Blood 12/17/2024 5:33 PM EDT 12/17/2024 5:37 PM EDT Aaron Peterson PA-C LAB BLOOD ORDERABLES Final Res ult Performing Organization Address [facility]/ZIP Co de Phone Number [address] [address] * ECG 12-LEAD (12/17/2024 5:22 PM EDT) Only the most recent of2 resultswithin the time period is included. Ventricular Rate EKG/MIN 79 BPM [facility] Atrial Rate 79 BPM [facility] OR Interval 196 ms [facility] QRS Duration 86 ms [facility] QT Interval 404 ms [facility] QTC Interval 463 ms [facility] P [place] 44 degrees [facility] R Wave [place] 35 degrees [facility] T Wave [place] 34 degrees [facility] 12/17/2024 5:22 PM EDT 12/18/2024 7:54 AM EDT Narrative [facility] - 12/18/2024 7:54 AM EDT Normal sinus rhythm Normal ECG No previous ECGs available Confirmed by Josue Corado ([id number]) on 12/18/2024 7:54:47 AM Aaron Peterson PA-C ECG ORDERABLES Final Result [facility] * CT HEAD WITHOUT CONTRAST (12/17/2024 3:29 PM EDT) Anatomical Region Laterality Modality Head Computed Tomogra phy 12/17/2024 4:42 PM EDT Impressions 12/17/2024 4:52 PM EDT No acute intracranial finding. ATTESTATION: IHa as teaching physician, have reviewed the images for this case and if necessary edited the report originally created by Sonali Melgar. Narrative 12/17/2024 4:[address] HEAD WITHOUT CONTRAST Referring clinician's provided indication for this examination in Epic: * Headache, chronic, new features or increased frequency TECHNIQUE: CT of the head was performed without intravenous contrast using tailored dose modulation techniques. Images were reconstructed in the axial, coronal, and sagittal planes. COMPARISON: None FINDINGS: Brain Parenchyma: No midline shift, mass effect, parenchymal hemorrhage, or evidence of acute territorial infarct. Ventricular System and Extra-Axial Spaces: No extra-axial fluid collections. Basal cisterns are patent. No hydrocephalus. Partially empty sella. Osseous and Extracranial Structures: No calvarial fracture or significant soft tissue hematoma. No significant paranasal sinus disease. No orbital abnormality. Procedure Note Ha Gonsales MBBS - 12/17/2024 CT HEAD WITHOUT CONTRAST Referring clinician's provided indication for this examination in Epic: *Headache, chronic, new features or increased frequency TECHNIQUE: CT of the head was performed without intravenous contrast usingtailored dose modulation techniques. Images were reconstructed in theaxial, coronal, and sagittal planes. COMPARISON: None FINDINGS: Brain Parenchyma: No midline shift, mass effect, parenchymal hemorrhage,or evidence of acute territorial infarct. Ventricular System and Extra-Axial Spaces: No extra-axial fluidcollections. Basal cisterns are patent. No hydrocephalus. Partially emptysella. Osseous and Extracranial Structures: No calvarial fracture or significantsoft tissue hematoma. No significant paranasal sinus disease. No orbitalabnormality. IMPRESSION: No acute intracranial finding. ATTESTATION: I, Ha Gonsales as teaching physician, have reviewed theimages for this case and if necessary edited the report originally createdby Sonali Melgar. Aaron Peterson PA-C IMG CT HEAD/NECK Final Result * Babesia species PCR (12/17/2024 2:58 PM EDT) B.Microti PCR Negative Negative [facility] DPT OF LAB MED AND PAT+ B.Duncani PCR Negative Negative [facility] DPT OF LAB MED AND PAT+ B.Divergens/MO-1 PCR Negative Negative [facility] DPT OF LAB MED AND PAT+ Comment: (NOTE) ADDITIONAL INFORMATION This test was developed and its performance characteristics determined by [facility] in a manner consistent with CLIA requirements. This test has not been cleared or approved by the U.S. Food and Drug Administration. Blood 12/17/2024 2:58 PM EDT 12/17/2024 3:13 PM EDT Aaron Peterson PA-C LAB BLOOD ORDERABLES Final Res ult [facility] DPT OF LAB MED AND PAT+ [address] [place] [address] * Ehrlichia/anaplasma PCR (12/17/2024 2:58 PM EDT) Pathologist [facility] [place] ANAPLASMA PHAGOCYTO Negative Negative [facility] DPT OF LAB MED AND PAT+ EHRLICHIA CHAFFEENS Negative Negative [facility] DPT OF LAB MED AND PAT+ EHRL EWINGII/CANIS Negative Negative [facility] DPT OF LAB MED AND PAT+ EHRL MURIS-LIKE Negative Negative [facility] DPT OF LAB MED AND PAT+ Comment: (NOTE) ADDITIONAL INFORMATION This test was developed and its performance characteristics determined by [facility] in a manner consistent with CLIA requirements. This test has not been cleared or approved by the U.S. Food and Drug Administration. Blood 12/17/2024 2:58 PM EDT 12/17/2024 3:13 PM EDT Aaron Peterson PA-C LAB BLOOD ORDERABLES Final Res ult Performing Organization Address [facility] Co de Phone Number [facility] DPT OF LAB MED AND PAT+ [address] [place] [address] * Lyme Screen with Reflex to Immunoblot, Blood (12/17/2024 2:58 PM EDT) Pathologist [facility] [place] Lyme AB IgG Negative Negative [facility] Lyme AB IgM Negative Negative [facility] Blood 12/17/2024 2:58 PM EDT 12/17/2024 3:14 PM EDT Aaron Peterson PA-C LAB BLOOD ORDERABLES Final Res ult Performing Organization Address City/[facility]/ZIP Co de Phone Number [facility] [address] [place] [address] * MALARIA/BABESIA EXAM (12/17/2024 2:58 PM EDT) Pathologist [facility] [place] Special Requests None 12/17/2024 2:36 PM EDT [facility] MALARIA SMEAR No Malaria or Babesia observed 12/18/2024 8:04 AM EDT [facility] Blood (Blood) 12/17/2024 2:5 8 PM EDT 12/17/2024 3:13 PM EDT Aaron Peterson PA-C NON CULTURE MICROBIOLOGY Final Result Performing Organization Address [facility] Co de Phone Number [facility] [address] [place] [address] * BABESIA SEROLOGY (12/17/2024 2:58 PM EDT) [facility] Babesia microti IgG <1:64 <1:64 titer [facility] LAB MED/PATH [facility]PERIOR Comment: (NOTE) ADDITIONAL INFORMATION This test was developed using an analyte specific reagent. Its performance characteristics were determined by [facility] in a manner consistent with CLIA requirements. This test has not been cleared or approved by the U.S. Food and Drug Administration. Blood (Blood) 12/17/2024 2:5 8 PM EDT 12/17/2024 3:13 PM EDT Aaron Peterson PA-C MICROBIOLOGY - GENERAL ORDERAB LES Final Result Performing Organization Address [facility] de Phone Number [facility] MED/[facility] [address] [place] [address] * TSH with reflex (12/17/2024 2:58 PM EDT) Only the most recent of2 resultswithin the time period is included. [facility] TSH 1.04 0.27 - 4.20 uIU/mL [facility] Blood 12/17/2024 2:58 PM EDT 12/17/2024 3:14 PM EDT Aaron Peterson PA-C LAB BLOOD ORDERABLES Final Res ult Performing Organization Address City/[facility]/ZIP Co de Phone Number [address] [address] * (ABNORMAL) Urinalysis w/reflex Urine Culture (12/17/2024 12:38 PM EDT) COLOR Yellow Yellow [facility] CLARITY Clear [facility] GLUCOSE Negative Negative [facility] BILI Negative Negative [facility] KETONES Negative Negative [facility] SPECIFIC GRAVITY 1.020 1.005 - 1.030 [facility] BLOOD Negative Negative [facility] PH 6.0 5.0 - 8.0 [facility] Protein-UA Negative Negative [facility] NITRITE Negative Negative [facility] Leukocyte esterase, ur 1+(A) Negative [facility] Urine (Urine) 12/17/2024 12: 38 PM EDT 12/17/2024 12:43 PM EDT us Jalen Richardson MD URINE ORDERABLES Final Result Performing Organization Address [facility]/ZIP Co de Phone Number [address] [address] * (ABNORMAL) Urine sediment (12/17/2024 12:38 PM EDT) WBC 5-10(A) NONE SEEN /hpf [facility] RBC 0-2(A) NONE SEEN /hpf [facility] URINE EPITHELIAL 5-10(A) NONE SEEN [facility] MUCUS Trace(A) NONE SEEN /hpf [facility] BACTERIA Trace(A) NONE SEEN /hpf [facility] 12/17/2024 12:3 8 PM EDT 12/17/2024 12:43 PM EDT Jalen Richardson MD URINE ORDERABLES Final Result Performing Organization Address City/[facility]/ZIP Co de Phone Number [address] [address] * LFTs (hepatic panel) (12/17/2024 10:59 AM EDT) ALKALINE PHOSPHATASE 77 39 - 117 U/L [facility] TOTAL BILIRUBIN 0.4 0.0 - 1.2 mg/dL [facility] DIRECT BILIRUBIN 0.1 0.0 - 0.2 mg/dL [facility] Bilirubin (Indirect) NOT CALCULATED 0 - 1.5 mg/dL [facility] AST 18 0 - 37 U/L [facility] ALT 17 0 - 40 U/L [facility] TOTAL PROTEIN 7.3 6.5 - 8.0 g/dL [facility] ALBUMIN 4.0 3.9 - 4.8 g/dL [facility] GLOBULIN 3.3 1 - 4.8 g/dL [facility] A/G Ratio 1.21 1.00 - 4.80 RATIO [facility] Blood 12/17/2024 10:5 9 AM EDT 12/17/2024 11:18 AM EDT us Jalen Richardson MD LAB BLOOD ORDERAB LES Final Result Performing Organization Address City/State/[facility] Co de Phone Number [facility] [address] [place] [address] * (ABNORMAL) Basic metabolic panel (12/17/2024 10:59 AM EDT) SODIUM 134 133 - 146 mmol/L [facility] CHLORIDE 100 96 - 108 mmol/L [facility] POTASSIUM 4.1 3.3 - 5.1 mmol/L [facility] CO2 22 21 - 35 mmol/L [facility] BUN 16 6 - 19 mg/dL [facility] CREATININE 1.00 0.5 - 1.5 mg/dL [facility] GLUCOSE 100(H) 70 - 99 mg/dL [facility] CALCIUM 9.2 8.4 - 10.3 mg/dL [facility] EGFR 63 >59 mL/min/1.7 3m2 [facility] Comment:Estimated glomerular filtration rate calculated using the CKD-EPI refit equation. ANION GAP 16 10 - 20 mmol/L [facility] Blood 12/17/2024 10:5 9 AM EDT 12/17/2024 11:18 AM EDT us Jalen Richardson MD LAB BLOOD ORDERAB LES Final Result [address] [address] * (ABNORMAL) Comprehensive metabolic panel (11/12/2024 4:17 PM EDT) SODIUM 134 133 - 146 mmol/L [facility] POTASSIUM 4.2 3.3 - 5.1 mmol/L [facility] CHLORIDE 99 96 - 108 mmol/L [facility] CO2 25 21 - 35 mmol/L [facility] BUN 27(H) 6 - 19 mg/dL [facility] CREATININE 1.00 0.5 - 1.5 mg/dL [facility] GLUCOSE 82 70 - 99 mg/dL [facility] ALBUMIN 4.3 3.9 - 4.8 g/dL [facility] TOTAL PROTEIN 7.7 6.5 - 8.0 g/dL [facility] CALCIUM 9.4 8.4 - 10.3 mg/dL [facility] ALKALINE PHOSPHATASE 90 39 - 117 U/L [facility] TOTAL BILIRUBIN 0.4 0.0 - 1.2 mg/dL [facility] AST 14 0 - 37 U/L [facility] ALT 17 0 - 40 U/L [facility] GLOBULIN 3.4 1 - 4.8 g/dL [facility] EGFR 63 >59 mL/min/1.7 3m2 [facility] Comment:Estimated glomerular filtration rate calculated using the CKD-EPI refit equation. ANION GAP 14 10 - 20 mmol/L [facility] [facility] Blood 11/12/2024 4:17 PM EDT 11/12/2024 4:20 PM EDT us Molly Martin CNP LAB BLOOD ORDERABLES Final Result Performing Organization Address City/[facility]/ZIP Co de Phone Number [address] [address] * 25-OH vitamin D (11/12/2024 4:17 PM EDT) 25 OH VIT D (TOTAL) 44 30 - 60 ng/mL [facility] Blood 11/12/2024 4:17 PM EDT 11/12/2024 4:20 PM EDT us Molly Preciadodamien Martin BULK PLANT MANAGER LAB BLOOD ORDERABLES Final Result [address] [address] * (ABNORMAL) Lipid panel (06/24/2024 8:35 AM EST) HDL 79 mg/dL [facility] Comment: Interpretation <40 mg/dL: Low HDL cholesterol (major risk factor for CHD) Greater than or equal to 60 mg/dL: High HDL cholesterol ( negative risk factor for CHD) HDL - cholesterol is affected by a number of factors, e.g. smoking, excerise, hormones, sex and age. CHOLESTEROL 227 0 - 240 mg/dL [facility] TRIGLYCERIDES 95 30 - 160 mg/dL [facility] LDL 129 50 - 129 mg/dL [facility] Comment: LDL levels in terms of risk for coronary heart disease: <100 mg/dL: Optimal 100-129 mg/dL: Near or above optimal 130-159 mg/dL: Borderline high 160-189 mg/dL: High >190 mg/dL: Very High CARDIAC RISK RATIO 2.9(L) 3.3 - 4.4 C [facility] Blood 06/24/2024 8:35 AM EST 06/24/2024 8:42 AM EST us Jared Knott [facility] LAB BLOOD ORDERABLES Final Result [address] [address] * Pap Test (05/08/2024 12:00 AM EST) 05/08/2024 05/09/2024 8:4 0 AM EST Narrative SEE NARRATIVE - 05/15/2024 3:12 PM EST [address] [address] Softball Core Molder: Damion Daniel MD WOOD ROUTER Cytology Report FINAL DIAGNOSIS A. PAP SMEAR (THIN PREP) CE: SPECIMEN ADEQUACY: Satisfactory for evaluation; transformation zone present. INTERPRETATION: NEGATIVE FOR INTRAEPITHELIAL LESION OR MALIGNANCY. This specimen was analyzed by the automated ThinPrep Imaging System ([employer].) and the selected martinez were reviewed by a generator mechanic. Electronically Signed Out By: RADHA Reyna(ASCP) The Pap test is a screening test primarily for squamous cancers and precursors and has associated false-negative and false-positive results. New technologies such as liquid-based preparations may decrease but will not eliminate all false-negative results. Regular sampling and follow-up of unexplained clinical signs and symptoms are recommended to minimize false negative results. PROCEDURES/ADDENDA HPV Testing (Requested) Ordered Date: 05/09/2024 A. PAP SMEAR (THIN PREP) CE: High-risk HPV Panel w/ extended genotyping NEG HPV 16-NEG HPV 18-NEG HPV 45-NEG HPV 33/58-NEG HPV 31-NEG HPV 56/59/66-NEG HPV 51-NEG HPV 52-NEG HPV 35/39/68-NEG Performed by real-time polymerase chain reaction (PCR) at [facility], [address] [place] [address] using the FDA-approved BD Onclarity9 HPV Assay with extended genotyping. Uses of the assay in scenarios other than those approved by the FDA should be considered off-label use. The accuracy and precision of this test for all other off-label specimen sources has been verified in the Cytopathology Laboratory of the [facility] and has not been cleared or approved by the U.S. Food and Drug Administration. Clinical correlation is advised. The assay assesses the E6/E7 DNA target and utilizes human beta globin as an internal control. Cytology and HPV testing are screening assays and should not be used as the sole means of detecting cancer. False-positives and false-negatives can occur. CLINICAL HISTORY Date of Last Menstrual Period: Not Provided Menstrual History: Post Menopausal Other Clinical Conditions: Screening Pap SPECIMEN SOURCE A: PAP SMEAR (THIN PREP) CE Patient Name: BETHANY RIVER : 1960 (Age: 63) Sex: F Institution: [facility] Location: [facility] Date of Collection: 05/08/2024 Date of Reported: 05/15/2024 15:12 Results to: Jared Knott BUDGET ASSISTANT us Jared Knott BULK PLANT MANAGER CYTOLOGY ORDERABLES Final Result Performing Organization Address City/State/[facility] Co de Phone Number SEE NARRATIVE * MAMMOGRAPHY FOR RESULT ENTRY ONLY (05/14/2023) Jared Knott CNP HEALTH MAINTENANCE Edited Result - Final * Hepatitis C antibody, qualitative (05/08/2023 8:15 AM EST) HCV NON-REACTIV E NON-REACTI VE [facility] Blood 05/08/2023 8:15 AM EST 05/08/2023 8:19 AM EST Jared Knott CNP LAB BLOOD ORDERABLES Final Result Performing Organization Address City/[facility] Co de Phone Number [facility] [address] [place] [address] from Last 3 Months or Most Recently Relevant to Health Maintenance Insurance [facility] Care Teams Auto Body Mechanic Relationship Specialty Start Date End Date Jared Knott CNP [address] [place] [id number] [email or web address] PCP - General Family Medicine 04/25/22 Santana Woo MBBS [address] [place] [id number] [email or web address] Medical Oncology 10/29/23 Additional Source Comments The information contained in this document represents components of the legal health record. It is not the complete legal health record.[facility]
== END 2025-01-14 14:00 | disposition home or self-care (01) ==
LOC: HO.BBR 13:59
PROVIDERS: PCP Registered Nurse; Visit Provider Nurse Practitioner Family
DX: Z13.89 Encounter for screening for other disorder (principal)

== ENCOUNTER 2025-04-16 15:23 | Outpatient (REF) | payer BC, SELFPAY ==
--- OUTSIDE RECORDS SUMMARY | 2025-04-16 19:10 | XMS_ITS | Encounter Summary ---
Author Organization [facility] Address [address] [place] [address] Phone Care Team Providers Care Culinary Intern Name Role Phone Jared Knott CNP Primary Care Provider Santana Woo MBBS Unavailable [phone] Ion Bianchi DO Unavailable Reason for Visit * Reason Comments Medication Refill Encounter Details Date Type Department Care Team (Late st Contact Info) Description 03/23/2025 Refill [facility] General Surgical Care [address] [place] [address] Molly Martin CNP [address] [facility], 2nd [place] [address] [email or web address] Medication Refill Social History Tobacco Use Types Packs/Day Years Used Date Smoking Tobacco: Never Smokeless Tobacco: Never Alcohol Use Standard Drinks/Week Comments Yes 1 [...] high school, GED, job training, learning the [place] language, technical skills, or developing parenting skills)? [...] on file Sexual Orientation Not on file documented as of this encounter Plan of Treatment Upcoming Encounters Date Type Department Care Team (Late st Contact Info) Description 07/08/2025 3:30 PM EST Office Visit [facility] General Surgical Care [address] [place] [address] Molly Martin, TIERA [address] [facility], 2nd [place] [address] documented as of this encounter Visit Diagnoses Diagnosis Class 1 obesity with serious comorbidity and body mass index (BMI) of 32.0 to 32.9 in adult, unspecified obesity type documented in this encounter Additional Health Concerns Assessment Noted Time PHQ-2 Depression Total Score: 0 05/07/20 2:55 PM EST documented as of this encounter Care Teams Culinary Intern Relationship Specialty Start Date End Date Jared Knott CNP [address] [place] [email or web address] PCP - General Family Medicine 04/25/22 Santana Woo MBBS [address] [place] [address] [email or web address] Medical Oncology 10/29/23 Ion Bianchi DO [address] [place] [phone] [email or web address] Insurance Assigned Provider 04/04/25 documented as of this encounter Additional Source Comments The information contained in this document represents components of the legal health record. It is not the complete legal health record.[facility]
--- OUTSIDE RECORDS SUMMARY | 2025-04-16 19:10 | XMS_ITS | Encounter Summary ---
Author Organization [facility] Address [address] [place] [address] Phone Care Team Providers Care Supervisor Shed Workers Name Role Phone Jared Knott CNP Primary Care Provider [phone] Santana Woo MBBS Unavailable [phone] Ion Bianchi DO Unavailable Encounter Details Date Type Department Care Team (Late st Contact Info) Description 12/17/2024 Procedure Pass [facility], Ct Scan - [address] [id number] Social History Tobacco Use Types Packs/Day Years [...] high school, GED, job training, learning the [place]ian language, technical skills, or developing parenting skills)? [...] on file documented as of this encounter Functional Status * Calculated C-SSRS Risk Score (Lifetime/Recent) Answer Date of Assessment Author No Risk Indicated 12/17/2024 10:39 AM EDT Adithya Kiran RN * [place] Suicide Severity Rating Scale (Screener/Recent Self-Report) Question Answer Date of Assessment Author 1. Wish to be (Past 1 Month) No 025 10:39 AM EDT Adithya Kiran RN 2. Non-Specific Active Suici stacei Thoughts (Past 1 Month) No 12/17/2024 10:39 AM EDT Adithya Kiran RN 6. Suicidal Behavior (Lifetime) No 10:39 AM EDT Adithya Kiran RN documented as of this encounter Plan of Treatment Upcoming Encounters Date Type Department Care Team (Late st Contact Info) Description 07/08/2025 3:30 PM EST Office Visit [facility] General Surgical Care [address] [place] [address] Molly Martin, TEIRA [address] [facility], 2nd [place] [address] [email or web address] documented as of this encounter Visit Diagnoses Not on filedocumented in this encounter Additional Health Concerns Assessment Noted Time PHQ-2 Depression Total Score: 0 05/07/20 24 2:55 PM EST documented as of this encounter Care Teams Supervisor Shed Workers Relationship Specialty Start Date End Date Jared Knott CNP [address] [place] [address] PCP - General Family Medicine 04/25/22 Santana Woo MBBS [address] [place] [address] [email or web address] 10/29/23 Ion Bianchi DO [address] [place] [address] Insurance Assigned Provider 04/04/25 documented as of this encounter Additional Source Comments The information contained in this document represents components of the legal health record. It is not the complete legal health record.[facility]
--- OUTSIDE RECORDS SUMMARY | 2025-04-16 19:10 | XMS_ITS | Clinical Summary ---
Author Organization [facility] Address [address] [facility] [address] [place] [address] Phone Care Team Providers Care Cooker Process Cheese Name Role Phone Jared Knott CNP Primary Care Provider [phone] Santana Woo MBBS Unavailable [phone] Ion Bianchi DO Unavailable Allergies Active Allergy Reactions Criticality Noted Date Comments Penicillins Swelling 09/25/2017 Shellfish Containing Products 2017 Medications loratadine (CLARITIN) 10 mg tablet Take 10 mg by mouth daily. Active cholecalciferol (VITAMIN D3) 25 MCG (1,000 unit) tablet Take 1,000 Units by mouth daily. Active ondansetron (ZOFRAN) 4 MG tabletIndications :Malaise and fatigue,Nausea Take 1 tablet (4 mg total) by mouth every 12 (twelve) hours as needed for nausea. 30 tablet 5 Active sertraline (ZOLOFT) 50 MG tabletIndications :Generalized anxiety disorder TAKE (1) TABLET DAILY. 30 tablet 11 5 Active tirzepatide, weight loss, (ZEPBOUND) 12.5 mg/0.5 mL subcutaneous solution vialIndications:C lass 1 obesity with serious comorbidity and body mass index (BMI) of 32.0 to 32.9 in adult, unspecified obesity type Inject 0.5 mL (12.5 mg total) under the skin every 7 days. 2 mL 5 Active tirzepatide, weight loss, (ZEPBOUND) 12.5 mg/0.5 mL subcutaneous solution vialIndications:C lass 1 obesity with serious comorbidity and body mass index (BMI) of 32.0 to 32.9 in adult, unspecified obesity type Inject 0.5 mL (12.5 mg total) under the skin every 7 days. 2 mL 03/26/20 25 Discontinu ed(Reorder ) Active Problems Patient Care Coordination No te Formatting of this note migh t be different from the original. HEIGHT 172.2 cm taken by RB on 07/10/2023 Problem Noted Date Diagnosed Date Nausea 12/25/2024 Assessment & Plan (12/25/2024 7:04 AM EDT): Has been slowly improving. No associated GI symptoms/fevers. Labs done at [facility] normal. Is taking a two week break from Zepbound and when restarts will be at a lower dose. Rx refill sent for Zofran to use as needed. Ensure hydration/protein intake. Aware to follow-up if no improvement and/or worsening symptoms Low platelet count 12/25/2024 Assessment & Plan (12/25/2024 7:02 AM EDT): Mild on labs done at [facility] ED. No abnormal bleeding, hx of hemachromatosis. Will repeat CBC and follow-up with results Malaise and fatigue 12/17/2024 Assessment & Plan (12/25/2024 7:04 AM EDT): Labs/imaging done at [facility] normal. Is feeling better each day. [...] Patient's daughter- Yamile called and came to order picker/assembler patient to bring to ER. Provided water/cold [...] orders entered today. Is doing phlebotomy through [facility] Assessment & Plan (12/10/2024 10:42 PM EDT): IMPRESSION: Bethany Kauffman is a 63 y.o. female who is [...] 3 months Patient undergoes therapeutic phlebotomy at [facility] We will fax the order and labs to [facility] Target ferritin is less than 100 Return for follow-up in 1 year Thank you very much for allowing to participate in this patient's care Assessment & Plan (05/08/2024 5:24 PM EST): Stable, following with Dr. Woo Assessment & Plan (10/24/2023 8:54 AM EDT): IMPRESSION: Bethany Kauffman is a 63 y.o. female who is [...] stat US of RLE (scheduled appointment at [facility] at 12:45 pm) and follow-up with [...] patient is agreeable. Prefers to go through [facility], will fax mammogram order and follow-up with [...] increase. Will bring cuff/medication on trip to [place] in case BP becomes elevated Assessment & [...] (multiple side effects), Zepbound Assessment & Plan (03/18/2025 3:43 PM EDT): She is doing well with Zepbound 12.5 mg which is the highest dose currently available in vial. Recommend high-protein diet, plenty of fibrous vegetables, lower carbohydrate intake. Increase exercise. Follow-up in 3 months. Assessment & Plan (12/10/2024 9:01 AM EDT): [...] Encounters Date Type Department Care Team Description 03/23/2025 Refill [facility] [address] [place] [address] Molly Martin CNP Medication Refill 03/18/2025 3:30 PM EDT Office Visit [facility] [address] [place] [address] Molly Martin CNP Class 1 obesity with serious comorbidity and body mass index (BMI) of 32.0 to 32.9 in adult, unspecified obesity type (Primary Dx) 02/27/2025 Refill [facility] [address] [place] [address] Molly Martin CNP Medication Refill 02/25/2025 3:34 PM EDT - 02/25/2025 11:59 PM EDT Hospital Encounter [facility] [address] [place] [address] Santana Woo MBBS Discharge Disposition: Home or Self Care 02/12/2025 Refill [facility] [address] [place] [address] Jared Knott CNP Medication Refill (Sertraline ) 01/29/2025 Telephone [facility] [address] [place] [address] Molly Martin CNP from Last 3 Months Immunizations Immunization Administration Dates Next Due COVID-19 (Pre-04/16) [employer] Systems Vaccine, rS-Ad26, P F 09/11/2020 INFLUENZA, SPLIT VIRUS, TRIVALENT W/ PRESERVATIV E IM 04/25/2016 Influenza Quadrivalent MDCK Preservative Free IM 04/19/2019,05/01/2018 Influenza Quadrivalent MDCK w/Preservative IM Tdap 01/03/2021,03/14/2011 Family History Relation Status Comments [...] high school, GED, job training, learning the Lao language, technical skills, or developing parenting skills)? [...] Sign Reading Time Taken Comments Blood Pressure 122/80 03/18/2025 3:00 PM EDT Pulse 66 03/18/2025 3:00 PM EDT Temperature 36.5 C (97.7 F) 03/18/2025 3:00 PM EDT Respiratory Rate 20 12/24/2024 3:57 PM EDT Oxygen Saturation 99% 03/18/2025 3:00 PM EDT Inhaled Oxygen Concentration - - Weight 89.4 kg (197 lb) 03/26/2025 7:40 AM EDT Height 172.7 cm (5' 7.99 ) 03/18/2025 3:00 PM ED T Body Mass Index 29.96 03/18/2025 3:00 PM EDT Plan of Treatment Upcoming Encounters Date Type Department Care Team (Late st Contact Info) Description 07/08/2025 3:30 PM EST Office Visit [facility] [address] [place] [address] Molly Martin, OVEN TENDER BAGELS [address] [facility], 2nd [place] [address] [email or web address] Health Maintenance Due Date Last Done Comments COLONOSCOPY 2006 FIT TEST 2006 FOBT 2006 SIGMOIDOSCOPY 2006 VIRTUAL COLONOSCOPY 2006 PNEUMOCOCCAL VACCINES (50+ years) (1 of 1 - PCV) 2011 ZOSTER VACCINES (1 of 2) 2011 INFLUENZA VACCINE (#1) 2025 9, 05/01/2018, 04/25/2017, Additional history exists COVID-19 VACCINE (2 - season) 2025 09/11/2020 DEPRESSION SCREENING 05/07/2025 05/07/2024 MAMMOGRAM 05/14/2025 05/14/2023, 04/25, 03/27/2022, Additional history exists COLOGUARD 05/23/2025 05/23/2022 COLORECTAL CANCER SCREENING 05/23/2025 BLOOD PRESSURE 09/15/2025 03/18/2025 SCREENING FOR DIABETES 12/18/2027 12/17/2024, 2023 PAP SMEAR 05/08/2029 05/08/2024, 07/08/2018 LIPID PANEL 06/24/2029 06/24/2024, 04/25, 03/04/2018, Additional history exists Adult Td,Tdap Booster 01/03/2031 01/03/2021, 011 RSV VACCINE (1 - 1-dose 75+ series) 2036 HEPATITIS C SCREENING Completed 05/08/2023 HIV ONE-TIME SCREENING (18-65 YEARS) Completed 05/08/2023 SMOKING STATUS SCREENING (Once After 26 Yrs) Completed 03/18/2025 HEPATITIS A VACCINES Aged Out No long [...] Procedure Name Priority Date/Time Associated Diagnosis Comments CBC AND DIFFERENTIAL Routine 02/25/2025 3:34 PM EDT Hereditary hemochromatosis FERRITIN Routine 02/25/2025 3:34 PM EDT Hereditary hemochromatosis LIPID PANEL Routine 06/24/2024 8:35 AM EST Screening for hyperlipidemia PAP TEST Routine 05/08/2024 12:00 AM EST HM MAMMOGRAPHY Routine 05/14/2023 HEPATITIS C ANTIBODY, QUALITATIVE Routine 05/08/2023 8:15 AM EST Need for hepatitis C screening test from Last 3 Months or Most Recently Relevant to Health Maintenance Results * (ABNORMAL) CBC and differential (02/25/2025 3:34 PM EDT) WBC 6.72 4.00 - 11.00 K/uL [facility] RBC 4.18 4.00 - 5.20 M/uL [facility] HGB 14.0 12.0 - 16.0 g/dL [facility] HCT 40.4 36.0 - 46.0 % [facility] PLT 212 150 - 450 K/uL [facility] MCV 96.7 80.0 - 100.0 fL [facility] MCH 33.5(H) 27.0 - 31.0 pg [facility] MCHC 34.7 32.0 - 36.0 g/dL [facility] RDW 12.8 11.5 - 14.5 % [facility] MPV 9.8 8.4 - 12.0 fL [facility] NRBC 0.00 0.00 /100 WBCs [facility] ABSOLUTE NRBC 0.00 0.00 K/uL [facility] DIFF METHOD Auto [facility] NEUTS 53.4 48.0 - 76.0 % [facility] LYMPHS 36.5 18.0 - 41.0 % [facility] MONOS 7.0 4.0 - 11.0 % [facility] EOS 1.8 0.0 - 5.0 % [facility] BASOS 1.0 0.0 - 1.5 % [facility] Granulocytes, immature (%) 0.3 0.0 - 0.9 % [facility] ABSOLUTE NEUTS 3.59 1.92 - 7.60 K/uL [facility] ABSOLUTE LYMPHS 2.45 0.72 - 4.10 K/uL [facility] ABSOLUTE MONOS 0.47 0.16 - 1.10 K/uL [facility] ABSOLUTE EOS 0.12 0.00 - 0.50 K/uL [facility] ABSOLUTE BASOS 0.07 0.00 - 0.15 K/uL [facility] Granulocytes, immature 0.02 0.00 - 0.09 K/uL [facility] Blood 02/25/2025 3:34 PM EDT 02/25/2025 3:36 PM EDT us Santana GARCIA LAB BLOOD ORDERABLES Final Result [facility] [address] [place], [place] [id number] * Ferritin (02/25/2025 3:34 PM EDT) FERRITIN 119 13 - 150 ug/L [facility] Blood 02/25/2025 3:34 PM EDT 02/25/2025 3:36 PM EDT Santana GARCIA LAB BLOOD ORDERABLES Final Result Performing Organization Address [facility] Co de Phone Number [address] [address] * (ABNORMAL) Lipid panel (06/24/2024 8:35 AM EST) HDL 79 mg/dL [facility] Comment: Interpretation <40 mg/dL: Low HDL cholesterol (major risk factor for CHD) Greater than or equal to 60 mg/dL: High HDL cholesterol ( negative risk factor for CHD) HDL - cholesterol is affected by a number of factors, e.g. smoking, excerise, hormones, sex and age. CHOLESTEROL 227 0 - 240 mg/dL [facility] TRIGLYCERIDES 95 30 - 160 mg/dL [facility] LDL 129 50 - 129 mg/dL [facility] Comment: LDL levels in terms of risk for coronary heart disease: <100 mg/dL: Optimal 100-129 mg/dL: Near or above optimal 130-159 mg/dL: Borderline high 160-189 mg/dL: High >190 mg/dL: Very High CARDIAC RISK RATIO 2.9(L) 3.3 - 4.4 C [facility] Blood 06/24/2024 8:35 AM EST 06/24/2024 8:42 AM EST Jared Knott [facility] LAB BLOOD ORDERABLES Final Result Performing Organization Address [facility] Co de Phone Number [address] [address] * Pap Test (05/08/2024 12:00 AM EST) Report [address] [address] Ice Scraper: Damion Daniel MD GASOLINE ENGINE ASSEMBLER Cytology Report FINAL DIAGNOSIS A. PAP SMEAR (THIN PREP) CE: SPECIMEN ADEQUACY: Satisfactory for evaluation; transformation zone present. INTERPRETATION: NEGATIVE FOR INTRAEPITHELIAL LESION OR MALIGNANCY. This specimen was analyzed by the automated ThinPrep Imaging System ([employer] and the selected martinez were reviewed by a website designer. Electronically Signed Out By: RADHA Reyna(ASCP) The [...] by real-time polymerase chain reaction (PCR) at [address] using the FDA-approved [employer] Onclarity9 HPV Assay with extended genotyping. Uses of the assay in scenarios other than those approved by the FDA should be considered off-label use. The accuracy and precision of this test for all other off-label specimen sources has been verified in the Cytopathology Laboratory of the [facility] and has not been cleared or approved [...] SMEAR (THIN PREP) CE Patient Name: BETHANY KAUFFMAN : 1960 (Age: 63) Sex: F Institution: [facility] Location: [facility] Date of Collection: 05/08/2024 Date of Reported: 05/15/2024 15:12 Results to: Jared Knott [facility] Final Diagnosis A. PAP SMEAR (THIN PREP) CE: SPECIMEN ADEQUACY: Satisfactory for evaluation; transformation zone present. INTERPRETATION: NEGATIVE FOR INTRAEPITHELIAL LESION OR MALIGNANCY. This specimen was analyzed by the automated ThinPrep Imaging System ([employer].) and the selected martinez were reviewed by a website designer. [facility] Results\Inter pretation A. PAP SMEAR (THIN PREP) CE: High-risk HPV Panel w/ extended genotyping NEG HPV 16-NEG HPV 18-NEG HPV 45-NEG HPV 33/58-NEG HPV 31-NEG HPV 56/59/66-NEG HPV 51-NEG HPV 52-NEG HPV 35/39/68-NEG Performed by real-time polymerase chain reaction (PCR) at [facility], [address] [place] [address] using the FDA-approved [employer] Onclarity HPV Assay with extended genotyping. Uses of the assay in scenarios other than those approved by the FDA should be considered off-label use. The accuracy and precision of this test for all other off-label specimen sources has been verified in the Cytopathology Laboratory of the [facility] and has not been cleared or approved by the U.S. Food and Drug Administration. Clinical correlation is advised. The assay assesses the E6/E7 DNA target and utilizes human beta globin as an internal control. Cytology and HPV testing are screening assays and should not be used as the sole means of detecting cancer. False-positives and false-negatives can occur. [facility] Conversion Type (Conversion Source) 05/08/2024 05/09/2024 8:40 AM EST Jared Knott CNP CYTOLOGY ORDERABLES Edited Result - Final [address] [address] * MAMMOGRAPHY FOR RESULT ENTRY ONLY (05/14/2023) us Jared Knott CNP HEALTH MAINTENANCE Edited Result - Final * Hepatitis C antibody, qualitative (05/08/2023 8:15 AM EST) HCV NON-REACTIV E NON-REACTI VE [facility] Blood 05/08/2023 8:15 AM EST 05/08/2023 8:19 AM EST Jared Holden Nikos [facility] LAB BLOOD ORDERABLES Final Result [address] [address] from Last 3 Months or Most Recently Relevant to Health Maintenance Insurance Care Teams Cooker Process Cheese Relationship Specialty Start Date End Date Jared Knott CNP [address] [place] [address] [email or web address] PCP - General Family Medicine 04/25/22 Santana Woo MBBS [address] [place] [address] [email or web address] Medical [email or web address] 10/29/23 Ion Bianchi DO [address] [place] [address] [email or web address] Insurance Assigned Provider 04/04/25 Additional Source Comments The information contained in this document represents components of the legal health record. It is not the complete legal health record.[facility]
--- OUTSIDE RECORDS SUMMARY | 2025-04-16 19:11 | XMS_ITS | Encounter Summary ---
Author Organization [facility] Address [address] [place] [address] Phone Care Team Providers Care Pantograph Ii Engraver Name Role Phone NikosJared Adina MOTT Primary Care Provider [phone]- [phone] Anne Egan MD Unavailable Santana Woo MBBS Unavailable [phone] Ion Bianchi DO Unavailable Encounter Details Date Type Department Care Team (Late st Contact Info) Description 07/10/2023 Procedure Pass [facility] [address] [place], [place] [id number] Social History Tobacco Use Types Packs/Day Years Used Date Smoking Tobacco: Never Smokeless Tobacco: Never Alcohol Use Standard Drinks/Week Comments Yes 1 (1 standard drink = 0.6 oz pur e alcohol) Child or Family Care Answer Date Record ed Do you have problems with on e of the following making it difficult for you to work, study, or receive health care? No 05/06/2023 Education Answer Date Recorded Are you interested in help w ith more adult education (for example, completing high school, GED, job training, learning the Zimbabwean language, technical skills, or developing parenting skills)? No 05/06/2023 Are you concerned about learning? Not on file 05/06/2023 No 05/06/2023 Yes 05/06/2023 Food Answer Date Recorded Within the past 6 months we worried whether our food would run out before we got money to buy more. Never True 05/06/2023 Within the past 6 months the food we bought just didn't last and we didn't have enough money to get more. Never True Residential Stability Answer Date Recor ded What is your housing situation today? I have ever cr 05/06/2023 How many times have you move d in the past 12 months? Zero (I did not move) 05/06/2023 Paying for Meds Answer Date Recorded Do you have trouble paying for medicines? No 05/06/2023 Paying Utility Bills Answer Date Record ed Do you have trouble paying your heating or elect ricity bill? No 05/06/2023 Transportation Answer Date Recorded Has the lack of transportati on kept you from medical appointments or from getting medications? No 05/06/2023 Digital Access Answer Date Recorded No 05/06/2023 Yes 05/06/2023 Do you have reliable internet access at home? Ye s 05/06/2023 Do you have a device (e.g., phone, tablet, computer) with a working camera? Yes 05/06/2023 Comments Unknown Sex and Gender Information Value Date Recorded Sex Assigned at Not on file Legal Sex Female 3:26 PM EDT Gender Identity Not on file Sexual Orientation Not on file documented as of this encounter Plan of Treatment Upcoming Encounters Date Type Department Care Team (Late st Contact Info) Description 07/08/2025 3:30 PM EST Office Visit [facility] [address] [place] [address] Molly Martin CNP 15 [facility], [address] [place] [address] documented as of this encounter Visit Diagnoses Not on filedocumented in this encounter Additional Health Concerns Assessment Noted Time PHQ-2 Depression Total Score: 0 05/06/20 23 6:13 PM EST documented as of this encounter Care Teams Pantograph Ii Engraver Relationship Specialty Start Date End Date Jared Knott CNP [address] [place] [address] PCP - General Family Medicine 04/25/22 Anne Egan MD [address] [address] [email or web address] Primary Oncologist Hematology and Oncology 06/14/23 10/28/23 Santana Woo MBBS [facility] [address] [address] [email or web address] 10/29/23 Ion Bianchi DO [address] [place] [address] [email or web address] Insurance Assigned Provider 04/04/25 documented as of this encounter Additional Source Comments The information contained in this document represents components of the legal health record. It is not the complete legal health record.[facility]
--- OUTSIDE RECORDS SUMMARY | 2025-04-16 19:11 | XMS_ITS | Encounter Summary ---
Author Organization [facility] Address [address] [facility] [address] [place] [address] Phone Care Team Providers Care Sterile Tech Name Role Phone Tamara Coburn Bethany EPIC TRAINER Primary Care Provider + Jared Knott CNP Primary Care Provider [phone] Anne Egan MD Unavailable Santana Woo Unavailable [phone] Ion Bianchi DO Unavailable Reason for Referral * Physical Therapy (Routine) - Closed Specialty Diagnoses / Procedures Referred By Tianna tristan Referred To Contact Physical Therapy Diagnoses Encounter for rehabilitation Maddison Zambrano NP Phone: tel: fax: [address] [address] Phone: tel: Referral ID Status Reason Start Date Expiration Date Visits Re quested Visits Authorized [id number] Closed 08/19/2020 09/17/2020 8 8 Encounter Details Date Type Department Care Team (Latest Contact Info) Description 08/03/2020 Transcribe Orders [facility] [address] [place], [place] [id number] Maddison Zambrano NP [address] [place] [address] Encounter for rehabilitation (Primary Dx) Social History Tobacco Use Types Packs/Day Years Used Date Smoking Tobacco: Never Smokeless Tobacco: Never Alcohol Use Standard Drinks/Week Comments Yes 0 (1 standard drink = 0.6 oz pur e alcohol) Comments Unknown Sex and Gender Information Value Date Recorded Sex Assigned at Not on file Legal Sex Female 3:26 PM EDT Gender Identity Not on file Sexual Orientation Not on file documented as of this encounter Plan of Treatment Upcoming Encounters Date Type Department Care Team (Late st Contact Info) Description 07/08/2025 3:30 PM EST Office Visit [facility] General Surgical Care [address] [place] [address] Molly Martin CNP 15 [facility], 2nd [place] [address] [email or web address] documented as of this encounter Procedures Procedure Name Priority Date/Time Associated Diagnosis Comments AMB REFERRAL TO [facility] PHYSICAL THERAPY Routine 08/23/2020 1:49 PM EST Encounter for rehabilitation documented in this encounter Results * Ambulatory referral to [facility] Physical Therapy (08/23/2020 1:49 PM EST) Maddison Zambrano NP AMB [facility] REFERRALS Final Re sult documented in this encounter Visit Diagnoses Diagnosis Encounter for rehabilitation- Primary documented in this encounter Care Teams Sterile Tech Relationship Specialty Start Date End Date Tamara Coburn NP [address] [place] [address] PCP - General Family Medicine 09/25/17 04/24/22 Jared Knott CNP 29 [facility] [place] [address] PCP - General Family Medicine 04/25/22 Anne Egan MD [address] [place] [address] [email or web address] Primary Oncologist Hematology and Oncology 06/14/23 10/28/23 Santana Woo MBBS [address] [address] [email or web address] 10/29/23 Ion Bianchi DO [address] [place] [phone] [email or web address] Insurance Assigned Provider 04/04/25 documented as of this encounter Additional Source Comments The information contained in this document represents components of the legal health record. It is not the complete legal health record.[facility]
== END 2025-04-16 15:24 | disposition home or self-care (01) ==
LOC: HO.BBR 15:23
PROVIDERS: PCP Registered Nurse; Visit Provider Nurse Practitioner Family
DX: Z13.89 Encounter for screening for other disorder (principal)